=== PATIENT | male | born 1970 | race Native Hawaiian/Other Pacific Islander ===

== ENCOUNTER 2017-06-24 17:25 | Emergency (ER) | payer OTHER ==
[~2017-06-24] VITALS: Ht 167.6 cm; Wt 124.7 kg
[2017-06-24 17:30] VITALS: BP 184/105; TEMP 97.8
[2017-06-24] MEDS ORDERED: METFORMIN ER1000 MG PO (17:37)
== END 2017-06-24 18:25 | disposition home or self-care (01) ==
LOC: ED 17:25
DX: K02.9 Dental caries, unspecified (principal); K04.7 Periapical abscess without sinus; R68.84 Jaw pain; R60.9 Edema, unspecified; K08.9 Disorder of teeth and supporting structures, unspecified
CPT/HCPCS: 96372; 99283; J1885

== ENCOUNTER 2019-01-15 19:30 | Inpatient (IN) | payer OTHER ==
[~2019-01-15] VITALS: Ht 167.6 cm; Wt 149.3 kg
[~2019-01-15 19:30] MED LIST: METFORMIN ER1000 MG PO
[2019-01-15 19:45] VITALS: BP 154/100; TEMP 98.7
[2019-01-15 20:34] LABS: PLATELET COUNT 322 K/uL (142-355)
[2019-01-15 20:40] LABS: POTASSIUM 4.2 mmol/L (3.6-5.2)
[2019-01-16 00:20] VITALS: BP 140/72; TEMP 98.4; Ht 167.6 cm; Wt 149.3 kg
[2019-01-16 04:18] VITALS: BP 125/67; TEMP 98
[2019-01-16 04:40] LABS: PLATELET COUNT 306 K/uL (142-355)
[2019-01-16 04:57] LABS: POTASSIUM 4.1 mmol/L (3.6-5.2)
[2019-01-16 08:00] VITALS: BP 167/74; TEMP 97.4
[2019-01-16 20:00] VITALS: BP 119/69; TEMP 98
[2019-01-17 00:30] VITALS: BP 134/71; TEMP 98.3
[2019-01-17 04:00] VITALS: BP 122/78; TEMP 99.3
[2019-01-17 08:00] VITALS: BP 143/86; TEMP 98.3
[2019-01-17 12:00] VITALS: BP 123/77; TEMP 98.2
[2019-01-17 16:00] VITALS: BP 121/79; TEMP 98.1
[2019-01-17 19:57] VITALS: BP 148/80; TEMP 98.6
[2019-01-18] VITALS: BP 134/79; TEMP 98.8
[2019-01-18 04:00] VITALS: BP 135/67; TEMP 98.4
[2019-01-18 08:00] VITALS: BP 146/82; TEMP 97.8
[2019-01-18] MEDS ORDERED: ONDA2INJ2 PO (10:52)
[2019-01-18] MEDS ORDERED: HYDR-3182 PO (10:52)
[2019-01-18] MEDS ORDERED: GLIP10TA55 PO (10:52)
[2019-01-18] MEDS ORDERED: METFORMIN ER1000 MG PO (12:28)
[2019-01-18] MEDS ORDERED: CLIN300C PO (17:57)
== END 2019-01-18 12:30 | disposition home or self-care (01) | DRG 603 ==
LOC: ED 19:30 → MED/SURG 21:58
PROVIDERS: Emergency Medicine
DX: L03.116 Cellulitis of left lower limb (principal); L03.115 Cellulitis of right lower limb; E11.65 Type 2 diabetes mellitus with hyperglycemia
CPT/HCPCS: 36415; 80048; 80053; 80061; 80202; 81000; 83036; 83605; 85027; 85379; 87040; 96366; 96374; 99284; J1815; J3370

== ENCOUNTER 2019-03-08 14:08 | Emergency (ER) | payer OTHER ==
[~2019-03-08] VITALS: Ht 167.6 cm; Wt 149.2 kg
[~2019-03-08 14:08] MED LIST changes: +CLIN300C PO; +GLIP10TA55 PO; +HYDR-3182 PO; +ONDA2INJ2 PO
[2019-03-08 15:12] LABS: PLATELET COUNT 235 K/uL (142-355)
[2019-03-08 15:16] LABS: POTASSIUM 4.3 mmol/L (3.6-5.2)
[2019-03-08 15:37] LABS: PARTIAL THROMBOPLASTIN TIME 23.7 SECONDS (24.5-33.6)
[2019-03-08 19:00] VITALS: BP 134/83; TEMP 98.1
== END 2019-03-08 19:00 | disposition home or self-care (01) ==
LOC: ED 14:08
PROVIDERS: Hospitalist
PROC: 0H91XZZ Drainage of Face Skin, External Approach (ICD-10-PCS; principal; 2019-03-08)
DX: L02.01 Cutaneous abscess of face (principal); E11.65 Type 2 diabetes mellitus with hyperglycemia
CPT/HCPCS: 36415; 80053; 82962; 85027; 85610; 85730; 96365; 96375; 99284; J1815; J2270; J3370; J7040

== ENCOUNTER 2021-05-06 21:44 | Emergency (ER) | payer OTHER ==
[~2021-05-06] VITALS: Ht 167.6 cm; Wt 147.4 kg
[2021-05-06 22:11] LABS: PLATELET COUNT 219 K/uL (142-355)
[2021-05-06 22:15] LABS: POTASSIUM 3.8 mmol/L (3.6-5.2)
[2021-05-06 22:55] VITALS: BP 124/78; TEMP 98.2
== END 2021-05-06 22:55 | disposition home or self-care (01) ==
LOC: ED 21:44
PROVIDERS: Hospitalist
DX: J18.9 Pneumonia, unspecified organism (principal); U07.1 COVID-19; J06.9 Acute upper respiratory infection, unspecified
CPT/HCPCS: 80048; 85027; 87635; 87651; 96360; 96361; 96375; 99284; J0696; J1100; U0003